=== PATIENT | female | born 1940 | race Caucasian/White ===

== ENCOUNTER → 2017-12-05 | Outpatient (CLI) | payer MEDICARE ==
[~2017-12-05] MED LIST: ASPI-1026 PO; ATOR20TA65 PO; CALC-866 PO; CYAN50003 PO; DABI150C PO; DIAZ5TAB4 PO; DILT180C51 PO; DULO40CA2 PO; FURO20TA4 PO; LEVO500T2 PO; METF-526 PO; METO-409 PO; MIRA50TA PO; NITR0.4T SL; POTA20TA12 PO; SULF1TAB42 PO; TRAM1TAB PO
== END | disposition home or self-care (01) ==
LOC: SHCH 14:06
PROVIDERS: ATTEND Internal Medicine Cardiovascular Disease
DX: I11.0 Hypertensive heart disease with heart failure (principal); I50.22 Chronic systolic (congestive) heart failure; E11.9 Type 2 diabetes mellitus without complications
CPT/HCPCS: 93306

== ENCOUNTER → 2018-02-16 | Outpatient (CLI) | payer MEDICARE | END | disposition home or self-care (01) | LOC: RAH 15:10 | PROVIDERS: ATTEND Internal Medicine | DX: Z01.818 Encounter for other preprocedural examination (principal); S42.301A Unspecified fracture of shaft of humerus, right arm, initial encounter for closed fracture; I50.9 Heart failure, unspecified; X58.XXXA Exposure to other specified factors, initial encounter; Y93.89 Activity, other specified; Y92.89 Other specified places as the place of occurrence of the external cause; Y99.8 Other external cause status | CPT/HCPCS: 71046 ==

== ENCOUNTER 2018-05-04 09:10 | Emergency (ER) | payer MEDICARE ==
[2018-05-04] MEDS ORDERED: TRAMADOL HCL 50 MG TABLET ONE (10:07)
[2018-05-04 10:11] LABS: EOSINOPHILS % (AUTO) 1.9 % (0.0-8.0); HEMATOCRIT 39.8 % (36-48); LYMPHOCYTES % (AUTO) 19.9 % (21.0-51.0); MEAN CORPUSCULAR HEMOGLOBIN 35.3 pg (27.0-33.0); MEAN CORPUSCULAR HGB CONC 32.9 g/dL (32.0-36.0); MEAN CORPUSCULAR VOLUME 107.3 fL (79-99); MONOCYTES % (AUTO) 7.3 % (3.0-13.0); NEUTROPHILS % (AUTO) 69.9 % (40.0-77.0); PLATELET COUNT (AUTO) 243 K/uL (130-400); RED BLOOD CELL COUNT(AUTO) 3.71 MIL/uL (4.00-5.50); RED CELL DISTRIBUTION WIDTH 14.3 % (11.0-15.5); WHITE BLOOD COUNT (AUTO) 7.9 K/uL (4.8-10.8)
[2018-05-04 10:22] LABS: INR 1.25 (0.85-1.15); PARTIAL THROMBOPLASTIN TIME 41.2 SEC (26.3-35.5); POTASSIUM 4.1 mmol/L (3.5-5.1); PROTHROMBIN TIME 13.1 SEC (9.6-11.6)
[2018-05-04 10:27] LABS: ALBUMIN 3.6 g/dL (3.5-5.0); BILIRUBIN,TOTAL 0.4 mg/dL (0.2-1.0); TOTAL PROTEIN, SERUM 7.4 g/dL (6.0-8.3)
== END 2018-05-04 11:12 | disposition home or self-care (01) ==
LOC: EDH 09:10
DX: S22.32XA Fracture of one rib, left side, initial encounter for closed fracture (principal); S61.412A Laceration without foreign body of left hand, initial encounter; R55 Syncope and collapse; E11.9 Type 2 diabetes mellitus without complications; E78.5 Hyperlipidemia, unspecified; I10 Essential (primary) hypertension; Z95.1 Presence of aortocoronary bypass graft; Z85.3 Personal history of malignant neoplasm of breast; Z95.810 Presence of automatic (implantable) cardiac defibrillator; W18.39XA Other fall on same level, initial encounter; Y93.89 Activity, other specified; Y92.89 Other specified places as the place of occurrence of the external cause; Y99.8 Other external cause status
CPT/HCPCS: 36415; 71101; 73130; 80053; 84484; 85025; 85610; 85730; 93005

== ENCOUNTER → 2018-08-18 | Outpatient (CLI) | payer MEDICARE | END | disposition home or self-care (01) | LOC: SLP 20:31 | PROVIDERS: ATTEND Internal Medicine | DX: G47.33 Obstructive sleep apnea (adult) (pediatric) (principal) | CPT/HCPCS: 95810 ==

== ENCOUNTER → 2018-10-08 | Outpatient (CLI) | payer MEDICARE | END | disposition home or self-care (01) | LOC: RAH 13:25 | PROVIDERS: ATTEND Internal Medicine | DX: R92.2 Inconclusive mammogram (principal); Z85.3 Personal history of malignant neoplasm of breast | CPT/HCPCS: 77066 ==

== ENCOUNTER → 2018-10-13 | Outpatient (CLI) | payer MEDICARE | END | disposition home or self-care (01) | LOC: RAH 15:53 | PROVIDERS: ATTEND Internal Medicine | DX: M16.11 Unilateral primary osteoarthritis, right hip (principal); W19.XXXA Unspecified fall, initial encounter; Y93.89 Activity, other specified; Y92.89 Other specified places as the place of occurrence of the external cause; Y99.8 Other external cause status | CPT/HCPCS: 73502 ==

== ENCOUNTER → 2019-10-26 | Outpatient (CLI) | payer MEDICARE | END | disposition home or self-care (01) | LOC: RAH 10:42 | PROVIDERS: ATTEND Internal Medicine | DX: R92.1 Mammographic calcification found on diagnostic imaging of breast (principal); Z85.3 Personal history of malignant neoplasm of breast | CPT/HCPCS: 77066 ==

== ENCOUNTER → 2019-12-16 | Outpatient (CLI) | payer MEDICARE | END | disposition home or self-care (01) | LOC: RAH 09:28 | PROVIDERS: ATTEND Internal Medicine | DX: M47.816 Spondylosis without myelopathy or radiculopathy, lumbar region (principal); M48.061 Spinal stenosis, lumbar region without neurogenic claudication; M54.5 Low back pain; G95.89 Other specified diseases of spinal cord; M89.38 Hypertrophy of bone, other site | CPT/HCPCS: 72100; 72170 ==

== ENCOUNTER → 2020-01-11 | Outpatient (CLI) | payer MEDICARE | END | disposition home or self-care (01) | LOC: RAH 13:24 | PROVIDERS: ATTEND Internal Medicine | DX: M25.551 Pain in right hip (principal); W19.XXXS Unspecified fall, sequela | CPT/HCPCS: 73502 ==

== ENCOUNTER → 2020-02-23 | Outpatient (CLI) | payer MEDICARE ==
[~2020-02-23] MED LIST changes: +ALBUTEROL SULFATE 0.083% 2.5 MG/3 ML INH IH ONE
== END | disposition home or self-care (01) ==
LOC: RESP 12:45
PROVIDERS: ATTEND Internal Medicine Cardiovascular Disease
DX: G47.33 Obstructive sleep apnea (adult) (pediatric) (principal); R06.02 Shortness of breath; I48.0 Paroxysmal atrial fibrillation; I50.22 Chronic systolic (congestive) heart failure
CPT/HCPCS: 94060; 94727; 94729

== ENCOUNTER → 2020-04-05 | Outpatient (CLI) | payer MEDICARE ==
[~2020-04-05] MED LIST changes: -ALBUTEROL SULFATE 0.083% 2.5 MG/3 ML INH IH ONE
== END | disposition home or self-care (01) ==
LOC: RAH 13:27
PROVIDERS: ATTEND Internal Medicine Cardiovascular Disease
DX: J84.10 Pulmonary fibrosis, unspecified (principal); I51.7 Cardiomegaly
CPT/HCPCS: 71250

== ENCOUNTER 2020-05-23 09:57 | Inpatient (IN) | payer MEDICARE ==
[2020-05-19 09:25] VITALS: BP 114/62
[2020-05-19 10:40] LABS: EOSINOPHILS % (AUTO) 2.6 % (0.0-8.0); HEMATOCRIT 39.7 % (36-48); LYMPHOCYTES % (AUTO) 20.7 % (21.0-51.0); MEAN CORPUSCULAR HEMOGLOBIN 37.2 pg (27.0-33.0); MEAN CORPUSCULAR HGB CONC 33.2 g/dL (32.0-36.0); MEAN CORPUSCULAR VOLUME 111.8 fL (79-99); MONOCYTES % (AUTO) 7.6 % (3.0-13.0); NEUTROPHILS % (AUTO) 67.8 % (40.0-77.0); PLATELET COUNT (AUTO) 239 K/uL (130-400); RED BLOOD CELL COUNT(AUTO) 3.55 MIL/uL (4.00-5.50); RED CELL DISTRIBUTION WIDTH 13.8 % (11.0-15.5); WHITE BLOOD COUNT (AUTO) 7.3 K/uL (4.8-10.8)
[2020-05-19 10:53] LABS: APPEARANCE,URINE Cloudy (CLEAR); BILIRUBIN,URINE Negative (NEGATIVE); COLOR,URINE Yellow (YELLOW); GLUCOSE, URINE (UA) Negative (NEGATIVE); KETONES,URINE Negative (NEGATIVE); LEUKOCYTE ESTERASE ,URINE Small (NEGATIVE); NITRATE,URINE Positive (NEGATIVE); OCCULT BLOOD,URINE Negative (NEGATIVE); PH,URINE 5.5 (5.0-8.0); PROTEIN,URINE Negative (NEGATIVE); UROBILINOGEN,URINE 0.2 mg/dL (0.2-1.0)
[2020-05-19 11:01] LABS: INR 1.33 (0.85-1.15); PROTHROMBIN TIME 14.1 SEC (9.6-11.6)
[2020-05-19 11:03] LABS: CREATININE 1.2 mg/dL (0.5-1.5); PARTIAL THROMBOPLASTIN TIME 43.2 SEC (26.3-35.5)
[2020-05-19 11:07] LABS: BACTERIA,URINE Many /HPF (None Seen)
[2020-05-19 11:08] LABS: RBC,URINE None Seen /HPF (0-1)
[2020-05-23] VITALS (14 sets, daily range): BP systolic 136–167; BP diastolic 48–90
[~2020-05-23] VITALS: Ht 154.9 cm; Wt 67.9 kg
[~2020-05-23 09:57] MED LIST changes: +AMIO400T4 PO; -ASPI-1026 PO; -CALC-866 PO; -DIAZ5TAB4 PO; +GABA-529 PO; +GLUC-193 PO; -LEVO500T2 PO; +LISI2.5T2 PO; -METF-526 PO; -MIRA50TA PO; -NITR0.4T SL; +PYRI100L2 PO; +SODIUM CHLORIDE 0.9% 500ML 500 ML IV SCH; -SULF1TAB42 PO; -TRAM1TAB PO
[2020-05-23] MEDS ORDERED: SODIUM CHLORIDE 0.9% 1000ML 1,000 ML IV ONE (10:19)
[2020-05-23] MEDS ORDERED: SODIUM BICARB 50MEQ 50ML VIAL 50 ML ONE (12:18)
[2020-05-23] MEDS ORDERED: BIVALIRUDIN 250 MG/VIAL IV ONE (12:18)
[2020-05-23] MEDS ORDERED: HEPARIN SODIUM 1000UNIT/ML 10ML VIAL ONE (12:18)
[2020-05-23] MEDS ORDERED: FENTANYL CITRATE PF 50 MCG/1 ML 2ML VIAL ONE (12:19)
[2020-05-23] MEDS ORDERED: NITROGLYCERIN 2 MG/VIAL VIAL IV ONE (12:19)
[2020-05-23] MEDS ORDERED: MIDAZOLAM HCL 1 MG/ML 2ML VIAL ONE (12:19)
[2020-05-23] MEDS ORDERED: LIDOCAINE HCL 2% 20ML ONE (12:20)
[2020-05-23] MEDS ORDERED: IOHEXOL 350 MG/ML 100ML INFUS..BTL IV ONE (12:21)
[2020-05-23] MEDS ORDERED: ENALAPRILAT DIHYDRATE 1.25 MG/ML 2ML VIAL IVP ONE (13:28)
[2020-05-23] MEDS ORDERED: FUROSEMIDE 10 MG/ML 2ML VIAL ONE (14:28)
[2020-05-23] MEDS ORDERED: GABAPENTIN 100 MG CAPSULE PO PRN (15:45)
[2020-05-23] MEDS ORDERED: POTASSIUM CHLORIDE 20 MEQ ERTAB PO SCH (15:56)
[2020-05-23] MEDS: PYRIDOXINE HCL 50 MG TABLET PO SCH (16:04)
[2020-05-23] MEDS: CYANOCOBALAMIN (VITAMIN B-12) 1,000 MCG TABLET PO SCH (17:30)
[2020-05-23] MEDS: CEFTRIAXONE SODIUM 1 GM IVP SCH (17:31)
[2020-05-23] MEDS: DILTIAZEM HCL 180 MG CAP.SR.24H PO SCH (17:31)
[2020-05-23 18:35] LABS: BASOPHILS % (AUTO) 0.6 % (0.0-5.0); HEMATOCRIT 43.5 % (36-48); LYMPHOCYTES % (AUTO) 18.5 % (21.0-51.0); MEAN CORPUSCULAR HEMOGLOBIN 37.1 pg (27.0-33.0); MEAN CORPUSCULAR HGB CONC 34.5 g/dL (32.0-36.0); MEAN CORPUSCULAR VOLUME 107.7 fL (79-99); MONOCYTES % (AUTO) 9.3 % (3.0-13.0); NEUTROPHILS % (AUTO) 69.2 % (40.0-77.0); PLATELET COUNT (AUTO) 256 K/uL (130-400); RED BLOOD CELL COUNT(AUTO) 4.04 MIL/uL (4.00-5.50); RED CELL DISTRIBUTION WIDTH 13.4 % (11.0-15.5); WHITE BLOOD COUNT (AUTO) 8.1 K/uL (4.8-10.8)
[2020-05-23 18:46] LABS: CREATININE 1.2 mg/dL (0.5-1.5)
[2020-05-23 18:50] LABS: BILIRUBIN,TOTAL 0.6 mg/dL (0.2-1.0); MAGNESIUM 3.8 mg/dL (1.80-2.40); TOTAL PROTEIN, SERUM 7.9 g/dL (6.0-8.3)
[2020-05-23] MEDS: FAMOTIDINE 20MG TAB 20 MG TAB PO SCH (20:10)
[2020-05-23] MEDS: GLUCOSAMINE-CHONDROITIN PO SCH (20:10)
[2020-05-23] MEDS: DULOXETINE HCL 30 MG CAP PO SCH (20:10)
[2020-05-23] MEDS: FUROSEMIDE 10 MG/ML 2ML VIAL IV SCH (20:11)
[2020-05-23] MEDS: ATORVASTATIN CALCIUM 20 MG TABLET PO SCH (20:11)
[2020-05-24] VITALS (8 sets, daily range): BP systolic 107–149; BP diastolic 57–80
[2020-05-24 04:30] LABS: HEMATOCRIT 43.5 % (36-48); MEAN CORPUSCULAR HEMOGLOBIN 36.7 pg (27.0-33.0); MEAN CORPUSCULAR HGB CONC 33.8 g/dL (32.0-36.0); MEAN CORPUSCULAR VOLUME 108.5 fL (79-99); RED BLOOD CELL COUNT(AUTO) 4.01 MIL/uL (4.00-5.50); RED CELL DISTRIBUTION WIDTH 13.5 % (11.0-15.5); WHITE BLOOD COUNT (AUTO) 8.3 K/uL (4.8-10.8)
[2020-05-24 04:50] LABS: CREATININE 1.2 mg/dL (0.5-1.5); POTASSIUM 3.8 mmol/L (3.5-5.1)
[2020-05-24] MEDS: DILTIAZEM HCL 180 MG CAP.SR.24H PO SCH (08:49)
[2020-05-24] MEDS: DULOXETINE HCL 30 MG CAP PO SCH ×2 (08:49→21:21)
[2020-05-24] MEDS: CYANOCOBALAMIN (VITAMIN B-12) 1,000 MCG TABLET PO SCH (08:50)
[2020-05-24] MEDS: AMIODARONE HCL 200 MG TABLET PO SCH (08:50)
[2020-05-24] MEDS: POTASSIUM CHLORIDE 20 MEQ ERTAB PO SCH (08:55)
[2020-05-24] MEDS: FUROSEMIDE 10 MG/ML 2ML VIAL IV SCH (10:44)
[2020-05-24] MEDS: LISINOPRIL 2.5 MG TABLET PO SCH (11:04)
[2020-05-24] MEDS: METOPROLOL SUCCINATE 50 MG TAB.SR.24H PO SCH (11:04)
[2020-05-24] MEDS: GLUCOSAMINE-CHONDROITIN PO SCH (12:17)
[2020-05-24] MEDS: PYRIDOXINE HCL 50 MG TABLET PO SCH (12:36)
[2020-05-24] MEDS: CEFTRIAXONE SODIUM 1 GM IVP SCH (18:37)
[2020-05-24] MEDS: FUROSEMIDE 10 MG/ML 4ML VIAL IV SCH ×2 (21:00→21:22)
[2020-05-24] MEDS: ATORVASTATIN CALCIUM 20 MG TABLET PO SCH (21:21)
[2020-05-24] MEDS: FAMOTIDINE 20MG TAB 20 MG TAB PO SCH (21:21)
[2020-05-25 03:30] VITALS: BP 112/64
[2020-05-25 05:43] LABS: BASOPHILS % (AUTO) 1.1 % (0.0-5.0); LYMPHOCYTES % (AUTO) 18.6 % (21.0-51.0); MEAN CORPUSCULAR HEMOGLOBIN 37.6 pg (27.0-33.0); MEAN CORPUSCULAR HGB CONC 35.3 g/dL (32.0-36.0); MEAN CORPUSCULAR VOLUME 106.4 fL (79-99); MONOCYTES % (AUTO) 13.7 % (3.0-13.0); NEUTROPHILS % (AUTO) 64.4 % (40.0-77.0); PLATELET COUNT (AUTO) 271 K/uL (130-400); RED BLOOD CELL COUNT(AUTO) 4.23 MIL/uL (4.00-5.50); RED CELL DISTRIBUTION WIDTH 13.2 % (11.0-15.5); WHITE BLOOD COUNT (AUTO) 9.5 K/uL (4.8-10.8)
[2020-05-25 05:44] LABS: CREATININE 1.4 mg/dL (0.5-1.5); POTASSIUM 4.1 mmol/L (3.5-5.1)
[2020-05-25 05:59] LABS: B-TYPE NATRIURETIC PEPTIDE 378 pg/mL (0-100)
[2020-05-25 08:00] VITALS: BP 109/61
[2020-05-25] MEDS: PYRIDOXINE HCL 50 MG TABLET PO SCH (09:45)
[2020-05-25] MEDS: POTASSIUM CHLORIDE 20 MEQ ERTAB PO SCH (09:45)
[2020-05-25] MEDS: DILTIAZEM HCL 180 MG CAP.SR.24H PO SCH (09:45)
[2020-05-25] MEDS: FUROSEMIDE 10 MG/ML 4ML VIAL IV SCH ×3 (09:46→20:49)
[2020-05-25] MEDS: METOPROLOL SUCCINATE 50 MG TAB.SR.24H PO SCH (09:46)
[2020-05-25] MEDS: AMIODARONE HCL 200 MG TABLET PO SCH (09:46)
[2020-05-25] MEDS: LISINOPRIL 2.5 MG TABLET PO SCH (09:46)
[2020-05-25] MEDS: GLUCOSAMINE-CHONDROITIN PO SCH (09:46)
[2020-05-25] MEDS: CYANOCOBALAMIN (VITAMIN B-12) 1,000 MCG TABLET PO SCH (09:46)
[2020-05-25] MEDS: DULOXETINE HCL 30 MG CAP PO SCH ×2 (09:46→20:48)
[2020-05-25 12:00] VITALS: BP 134/77
[2020-05-25 16:00] VITALS: BP 138/79
[2020-05-25] MEDS: CEFTRIAXONE SODIUM 1 GM IVP SCH (16:55)
[2020-05-25 19:35] VITALS: BP 119/64
[2020-05-25] MEDS: ATORVASTATIN CALCIUM 20 MG TABLET PO SCH (20:48)
[2020-05-25] MEDS: FAMOTIDINE 20MG TAB 20 MG TAB PO SCH (20:48)
[2020-05-25 23:56] VITALS: BP 128/69
[2020-05-26 04:00] VITALS: BP 109/67
[2020-05-26 05:23] LABS: CREATININE 1.1 mg/dL (0.5-1.5); EOSINOPHILS % (AUTO) 2.2 % (0.0-8.0); MEAN CORPUSCULAR HEMOGLOBIN 36.4 pg (27.0-33.0); MEAN CORPUSCULAR HGB CONC 33.9 g/dL (32.0-36.0); MEAN CORPUSCULAR VOLUME 107.6 fL (79-99); MONOCYTES % (AUTO) 11.4 % (3.0-13.0); NEUTROPHILS % (AUTO) 62.1 % (40.0-77.0); PLATELET COUNT (AUTO) 253 K/uL (130-400); POTASSIUM 3.7 mmol/L (3.5-5.1); RED BLOOD CELL COUNT(AUTO) 4.09 MIL/uL (4.00-5.50); RED CELL DISTRIBUTION WIDTH 13.1 % (11.0-15.5); WHITE BLOOD COUNT (AUTO) 10.6 K/uL (4.8-10.8)
[2020-05-26 07:03] LABS: INR 1.08 (0.85-1.15); PROTHROMBIN TIME 11.7 SEC (9.6-11.6)
[2020-05-26 07:04] LABS: PARTIAL THROMBOPLASTIN TIME 24.7 SEC (26.3-35.5)
[2020-05-26 07:10] LABS: CREATINE KINASE, TOTAL 77 U/L (21-232); MYOGLOBIN 68 ng/mL (10-92); TROPONIN I < 0.04 ng/mL (0.00-0.06)
[2020-05-26] MEDS ORDERED: LIDOCAINE HCL 2% 20ML ONE (07:59)
[2020-05-26] MEDS ORDERED: SODIUM BICARB 50MEQ 50ML VIAL 50 ML ONE (07:59)
[2020-05-26 08:00] VITALS: BP 112/71
[2020-05-26] MEDS ORDERED: METO200T49 PO (09:45)
[2020-05-26] MEDS: DULOXETINE HCL 30 MG CAP PO SCH (14:00)
[2020-05-26] MEDS: LISINOPRIL 2.5 MG TABLET PO SCH (14:00)
[2020-05-26] MEDS: CYANOCOBALAMIN (VITAMIN B-12) 1,000 MCG TABLET PO SCH (14:00)
[2020-05-26] MEDS: GLUCOSAMINE-CHONDROITIN PO SCH (14:00)
[2020-05-26] MEDS: DILTIAZEM HCL 180 MG CAP.SR.24H PO SCH (14:00)
[2020-05-26] MEDS: POTASSIUM CHLORIDE 20 MEQ ERTAB PO SCH (14:00)
[2020-05-26] MEDS: PYRIDOXINE HCL 50 MG TABLET PO SCH (14:00)
[2020-05-26] MEDS: AMIODARONE HCL 200 MG TABLET PO SCH (14:00)
[2020-05-27] MEDS ORDERED: METOPROLOL SUCCINATE 50 MG TAB.SR.24H PO SCH (09:00)
== END 2020-05-26 15:16 | disposition home or self-care (01) | DRG 286 ==
LOC: DAH 09:57 → DAHIP 09:58 → DAH 09:58 → 4DH 16:11
PROVIDERS: ADMIT Internal Medicine; ATTEND Internal Medicine
PROC: 4A023N8 Measurement of Cardiac Sampling and Pressure, Bilateral, Percutaneous Approach (ICD-10-PCS; principal; 2020-05-23)
PROC: B2111ZZ Fluoroscopy of Multiple Coronary Arteries using Low Osmolar Contrast (ICD-10-PCS; 2020-05-23)
PROC: B2181ZZ Fluoroscopy of Left Internal Mammary Bypass Graft using Low Osmolar Contrast (ICD-10-PCS; 2020-05-23)
PROC: B2151ZZ Fluoroscopy of Left Heart using Low Osmolar Contrast (ICD-10-PCS; 2020-05-23)
PROC: B2131ZZ Fluoroscopy of Multiple Coronary Artery Bypass Grafts using Low Osmolar Contrast (ICD-10-PCS; 2020-05-23)
PROC: 4A023N6 Measurement of Cardiac Sampling and Pressure, Right Heart, Percutaneous Approach (ICD-10-PCS; 2020-05-26)
DX: I13.0 Hypertensive heart and chronic kidney disease with heart failure and stage 1 through stage 4 chronic kidney disease, or unspecified chronic kidney disease (principal); I50.43 Acute on chronic combined systolic (congestive) and diastolic (congestive) heart failure; N39.0 Urinary tract infection, site not specified; I27.20 Pulmonary hypertension, unspecified; I34.0 Nonrheumatic mitral (valve) insufficiency; I25.10 Atherosclerotic heart disease of native coronary artery without angina pectoris; N18.30 Chronic kidney disease, stage 3 unspecified; F32.9 Major depressive disorder, single episode, unspecified; G47.33 Obstructive sleep apnea (adult) (pediatric); I48.0 Paroxysmal atrial fibrillation; Z80.52 Family history of malignant neoplasm of bladder; Z82.3 Family history of stroke; Z82.49 Family history of ischemic heart disease and other diseases of the circulatory system; Z85.3 Personal history of malignant neoplasm of breast; Z95.810 Presence of automatic (implantable) cardiac defibrillator; Z95.1 Presence of aortocoronary bypass graft
CPT/HCPCS: 36415; 71045; 80048; 80053; 81001; 82550; 82948; 83735; 83874; 83880; 84145; 84484; 85025; 85027; 85610; 85730; 87077; 87088; 87186; 93005; 93306; 93356; 93451; 93461; A4606; C1760; C1769; C1894; G0378; J0583; J0696; J1644; J1940; J2250; J3010; J3490; J7030; Q9967

== ENCOUNTER 2021-06-18 09:09 | Emergency (ER) | payer MEDICARE ==
[~2021-06-18 09:09] MED LIST changes: -DILT180C51 PO; +LISI2.5T13 PO; -LISI2.5T2 PO; -METO-409 PO; +METO200T49 PO; +POTA-192 PO; -POTA20TA12 PO; -SODIUM CHLORIDE 0.9% 500ML 500 ML IV SCH
[2021-06-18] MEDS ORDERED: GABA-529 PO (09:34)
[2021-06-18] MEDS ORDERED: TORS100T16 PO (09:34)
[2021-06-18] MEDS ORDERED: OMEP20CA12 PO (09:34)
[2021-06-18] MEDS ORDERED: AMIO200T68 PO (09:34)
[2021-06-18] MEDS ORDERED: SPIR25TA6 PO (09:34)
[2021-06-18 09:46] LABS: BASOPHILS % (AUTO) 0.6 % (0.0-5.0); HEMATOCRIT 38.4 % (36-48); LYMPHOCYTES % (AUTO) 13.1 % (21.0-51.0); MEAN CORPUSCULAR HEMOGLOBIN 36.2 pg (27.0-33.0); MEAN CORPUSCULAR HGB CONC 34.1 g/dL (32.0-36.0); MEAN CORPUSCULAR VOLUME 106.1 fL (79-99); MONOCYTES % (AUTO) 7.5 % (3.0-13.0); NEUTROPHILS % (AUTO) 77.2 % (40.0-77.0); PLATELET COUNT (AUTO) 219 K/uL (130-400); RED BLOOD CELL COUNT(AUTO) 3.62 MIL/uL (4.00-5.50); RED CELL DISTRIBUTION WIDTH 13.7 % (11.0-15.5); WHITE BLOOD COUNT (AUTO) 12.5 K/uL (4.8-10.8)
[2021-06-18] MEDS ORDERED: ONDANSETRON 4MG INJ ONE (09:53)
[2021-06-18 09:54] LABS: ALBUMIN 3.5 g/dL (3.5-5.0); BILIRUBIN,TOTAL 0.6 mg/dL (0.2-1.0); CREATININE 1.5 mg/dL (0.5-1.5); POTASSIUM 3.4 mmol/L (3.5-5.1); TOTAL PROTEIN, SERUM 7.7 g/dL (6.0-8.3)
[2021-06-18] MEDS ORDERED: MORPHINE 2 MG SYG ONE (09:54)
[2021-06-18] MEDS ORDERED: ONDANSETRON 4MG INJ IVP ONE (10:00)
[2021-06-18] MEDS ORDERED: MORPHINE 2 MG SYG IVP ONE (10:00)
[2021-06-18 12:13] VITALS: BP 134/65
== END 2021-06-18 15:42 | disposition home or self-care (01) ==
LOC: EDH 09:09
DX: S70.01XA Contusion of right hip, initial encounter (principal); S50.01XA Contusion of right elbow, initial encounter; S00.03XA Contusion of scalp, initial encounter; I10 Essential (primary) hypertension; Z79.01 Long term (current) use of anticoagulants; Z79.899 Other long term (current) drug therapy; Z95.810 Presence of automatic (implantable) cardiac defibrillator; W22.03XA Walked into furniture, initial encounter; Y93.89 Activity, other specified; Y92.89 Other specified places as the place of occurrence of the external cause; Y99.8 Other external cause status
CPT/HCPCS: 36415; 70450; 72125; 73080; 73502; 73700; 80053; 84484; 85025; 93005; 96374; 96375; 99285; J2405

== ENCOUNTER 2021-06-29 15:52 | Emergency (ER) | payer MEDICARE ==
[~2021-06-29] VITALS: Ht 152.4 cm; Wt 63.5 kg
[~2021-06-29 15:52] MED LIST changes: +AMIO200T68 PO; -AMIO400T4 PO; -CYAN50003 PO; -FURO20TA4 PO; -GLUC-193 PO; -LISI2.5T13 PO; +OMEP20CA12 PO; -PYRI100L2 PO; +SPIR25TA6 PO; +TORS100T16 PO
[2021-06-29] MEDS ORDERED: NAPR-1196 PO (19:31)
[2021-06-29 19:41] VITALS: BP 123/58
== END 2021-06-29 19:49 | disposition home or self-care (01) ==
LOC: EDH 15:52
DX: S70.01XA Contusion of right hip, initial encounter (principal); I25.10 Atherosclerotic heart disease of native coronary artery without angina pectoris; E11.9 Type 2 diabetes mellitus without complications; E78.00 Pure hypercholesterolemia, unspecified; I10 Essential (primary) hypertension; Z79.899 Other long term (current) drug therapy; Z90.89 Acquired absence of other organs; Z98.890 Other specified postprocedural states; X58.XXXA Exposure to other specified factors, initial encounter; Y93.89 Activity, other specified; Y92.89 Other specified places as the place of occurrence of the external cause; Y99.8 Other external cause status
CPT/HCPCS: 72192; 73551

== ENCOUNTER → 2022-03-13 | Outpatient (CLI) | payer MEDICARE ==
[~2022-03-13] MED LIST changes: +NAPR-1196 PO
== END | disposition home or self-care (01) ==
LOC: RAH 08:58
PROVIDERS: ATTEND Internal Medicine
DX: Z12.31 Encounter for screening mammogram for malignant neoplasm of breast (principal); Z85.3 Personal history of malignant neoplasm of breast
CPT/HCPCS: 77066

== ENCOUNTER 2022-06-18 18:16 | Emergency (ER) | payer MEDICARE ==
[~2022-06-18] VITALS: Ht 154.9 cm; Wt 68.9 kg
[2022-06-18] MEDS ORDERED: 0.9%NACL 1000ML 1,000 ML IV ONE (19:55)
[2022-06-18 20:22] LABS: BASOPHILS % (AUTO) 1.1 % (0.0-5.0); EOSINOPHILS % (AUTO) 1.7 % (0.0-8.0); LYMPHOCYTES % (AUTO) 19.1 % (21.0-51.0); MEAN CORPUSCULAR HEMOGLOBIN 37.2 pg (27.0-33.0); MEAN CORPUSCULAR HGB CONC 36.3 g/dL (32.0-36.0); MEAN CORPUSCULAR VOLUME 102.2 fL (79-99); MONOCYTES % (AUTO) 10.3 % (3.0-13.0); NEUTROPHILS % (AUTO) 67.4 % (40.0-77.0); PLATELET COUNT (AUTO) 315 K/uL (130-400); RED BLOOD CELL COUNT(AUTO) 4.01 MIL/uL (4.00-5.50); RED CELL DISTRIBUTION WIDTH 11.7 % (11.0-15.5)
[2022-06-18 20:25] LABS: APPEARANCE,URINE CLOUDY (CLEAR); BILIRUBIN,URINE NEGATIVE (NEGATIVE); COLOR,URINE COLORLESS (YELLOW); GLUCOSE, URINE (UA) 500 mg/dL (NEGATIVE); KETONES,URINE NEGATIVE (NEGATIVE); LEUKOCYTE ESTERASE ,URINE 500 Leu/uL (NEGATIVE); NITRATE,URINE NEGATIVE (NEGATIVE); PROTEIN,URINE 10 mg/dL (NEGATIVE); UROBILINOGEN,URINE 0.2 mg/dL (0.2-1.0)
[2022-06-18 20:32] LABS: BACTERIA,URINE MOD /HPF (None Seen); MUCUS,URINE RARE LPF (None Seen); RBC,URINE 0-1 /HPF (0-1); SQUAMOUS EPITHELIAL CELL,UR MOD /HPF (0-2); WBC,URINE TNTC /HPF (0-1)
[2022-06-18 20:41] LABS: CREATININE 2.2 mg/dL (0.5-1.5); MAGNESIUM 2.8 mg/dL (1.80-2.40); TOTAL PROTEIN, SERUM 8.3 g/dL (6.0-8.3)
[2022-06-18 20:43] LABS: POTASSIUM 2.4 mmol/L (3.5-5.1)
[2022-06-18 20:56] LABS: B-TYPE NATRIURETIC PEPTIDE 357 pg/mL (0-100)
[2022-06-18] MEDS ORDERED: 0.9%NACL 1000ML 1,000 ML IV SCH (21:00)
[2022-06-18] MEDS ORDERED: POTASSIUM BICARB/CIT AC 25 MEQ TABLET.EFF PO ONE (21:00)
[2022-06-18] MEDS ORDERED: CEFTRIAXONE 1G VIAL IVP ONE (21:30)
[2022-06-19] MEDS ORDERED: 0.9% NACL 500ML IV.SOLN 500 ML IV ONE (03:02)
[2022-06-19 03:04] LABS: ALBUMIN 3.5 g/dL (3.5-5.0); CREATININE 1.9 mg/dL (0.5-1.5); TOTAL PROTEIN, SERUM 7.4 g/dL (6.0-8.3)
[2022-06-19 03:06] LABS: POTASSIUM 2.3 mmol/L (3.5-5.1)
[2022-06-19] MEDS ORDERED: 0.9% NACL 500ML IV.SOLN 500 ML IV STA (03:10)
[2022-06-19] MEDS ORDERED: POTASSIUM BICARB/CIT AC 25 MEQ TABLET.EFF ONE (03:12)
[2022-06-19 05:27] LABS: CREATININE 1.7 mg/dL (0.5-1.5)
[2022-06-19 05:32] LABS: ALBUMIN 3.6 g/dL (3.5-5.0); TOTAL PROTEIN, SERUM 7.6 g/dL (6.0-8.3)
[2022-06-19] MEDS ORDERED: CEPH500B PO (05:46)
[2022-06-19 06:00] VITALS: BP 132/75
[2022-06-19] MEDS ORDERED: POTASSIUM BICARB/CIT AC 25 MEQ TABLET.EFF PO ONE ×2 (06:00→09:00)
== END 2022-06-19 06:07 | disposition home or self-care (01) ==
LOC: EDH 18:16
DX: E87.6 Hypokalemia (principal); E86.0 Dehydration; N13.9 Obstructive and reflux uropathy, unspecified; I50.9 Heart failure, unspecified; N28.9 Disorder of kidney and ureter, unspecified; E11.9 Type 2 diabetes mellitus without complications; E78.00 Pure hypercholesterolemia, unspecified; Z79.01 Long term (current) use of anticoagulants; Z79.1 Long term (current) use of non-steroidal anti-inflammatories (NSAID); Z79.899 Other long term (current) drug therapy; Z95.810 Presence of automatic (implantable) cardiac defibrillator
CPT/HCPCS: 99285; 71045; 83735; 83880; 85025; 87077; 87088; 87186; 81001; 36415 ×2; 93005; 96361; 96374; 80053 ×3; J7030 ×2; J0696; J7040

== ENCOUNTER 2022-06-26 07:11 | Emergency (ER) | payer MEDICARE ==
[~2022-06-26] VITALS: Ht 154.9 cm; Wt 68.0 kg
[~2022-06-26 07:11] MED LIST changes: +CEPH500B PO
[2022-06-26 07:45] LABS: HEMATOCRIT 40.1 % (36-48); MEAN CORPUSCULAR HEMOGLOBIN 37.4 pg (27.0-33.0); MEAN CORPUSCULAR HGB CONC 34.2 g/dL (32.0-36.0); MEAN CORPUSCULAR VOLUME 109.6 fL (79-99); PLATELET COUNT (AUTO) 263 K/uL (130-400); RED BLOOD CELL COUNT(AUTO) 3.66 MIL/uL (4.00-5.50); RED CELL DISTRIBUTION WIDTH 12.3 % (11.0-15.5); WHITE BLOOD COUNT (AUTO) 9.2 K/uL (4.8-10.8)
[2022-06-26 07:58] LABS: CREATININE 1.8 mg/dL (0.5-1.5); POTASSIUM 3.1 mmol/L (3.5-5.1)
[2022-06-26 08:06] LABS: ALBUMIN 3.6 g/dL (3.5-5.0); TOTAL PROTEIN, SERUM 7.7 g/dL (6.0-8.3)
[2022-06-26 08:37] VITALS: BP 118/46
[2022-06-26] MEDS ORDERED: KCL 20 MEQ ERTAB PO ONE (10:00)
== END 2022-06-26 10:02 | disposition home or self-care (01) ==
LOC: EDH 07:11
DX: S00.12XA Contusion of left eyelid and periocular area, initial encounter (principal); S00.11XA Contusion of right eyelid and periocular area, initial encounter; E87.6 Hypokalemia; E78.00 Pure hypercholesterolemia, unspecified; E11.9 Type 2 diabetes mellitus without complications; Z79.899 Other long term (current) drug therapy; W18.30XA Fall on same level, unspecified, initial encounter; Y93.89 Activity, other specified; Y92.89 Other specified places as the place of occurrence of the external cause; Y99.8 Other external cause status
CPT/HCPCS: 36415; 70450; 72125; 80053; 84484; 85027; 93005

== ENCOUNTER 2022-12-12 05:49 | Observation (INO) | payer MEDICARE ==
[2022-12-10 08:45] LABS: BASOPHILS # (AUTO) 0.12 K/uL (0.00-0.20); BASOPHILS % (AUTO) 1.3 % (0.0-5.0); EOSINOPHILS % (AUTO) 6.7 % (0.0-8.0); HEMATOCRIT 40.1 % (36-48); IMMATURE GRANULOCYTE ABSOLUTE 0.04 K/uL (0-1); LYMPHOCYTES # (AUTO) 1.4 K/uL (1.0-4.8); LYMPHOCYTES % (AUTO) 15.7 % (21.0-51.0); MEAN CORPUSCULAR HEMOGLOBIN 35.7 pg (27.0-33.0); MEAN CORPUSCULAR HGB CONC 32.7 g/dL (32.0-36.0); MEAN CORPUSCULAR VOLUME 109.3 fL (79-99); MONOCYTES # (AUTO) 0.9 K/uL (0.1-1.0); MONOCYTES % (AUTO) 9.5 % (3.0-13.0); NEUTROPHILS % (AUTO) 66.4 % (40.0-77.0); PLATELET COUNT (AUTO) 301 K/uL (130-400); RED BLOOD CELL COUNT(AUTO) 3.67 MIL/uL (4.00-5.50); RED CELL DISTRIBUTION WIDTH 14.1 % (11.0-15.5)
[2022-12-10 08:49] VITALS: BP 128/69; PULSE 72; RESP 19
[2022-12-10 08:57] LABS: CREATININE 1.1 mg/dL (0.5-1.5); POTASSIUM 4.4 mmol/L (3.5-5.1)
[2022-12-10 08:58] LABS: INR 1.81 (0.85-1.15); PROTHROMBIN TIME 20.2 SEC (9.6-11.6)
[2022-12-10 08:59] LABS: PARTIAL THROMBOPLASTIN TIME 57.2 SEC (26.3-35.5)
[~2022-12-12] VITALS: Ht 152.4 cm; Wt 69.0 kg
[2022-12-12] VITALS (24 sets, daily range): BP systolic 97–124; BP diastolic 44–71; PULSE 60–86; RESP 14–19; O2SAT 97–98
[~2022-12-12 05:49] MED LIST changes: -AMIO200T68 PO; -CEPH500B PO; +DRON400T7 PO; -DULO40CA2 PO; +DULO60CA64 PO; +FURO20TA4 PO; -GABA-529 PO; +LEVO25TA54 PO; +METO-409 PO; -METO200T49 PO; -NAPR-1196 PO; -OMEP20CA12 PO; -SPIR25TA6 PO; -TORS100T16 PO
[2022-12-12] MEDS ORDERED: 0.9%NACL 1000ML 1,000 ML IV ONE (06:29)
[2022-12-12] MEDS ORDERED: LIDOCAINE HCL 400MG/20ML VIAL ONE (07:18)
[2022-12-12] MEDS ORDERED: HEPARIN 10,000 UNIT/10ML (1,000 UNIT/ML) VIAL ONE ×2 (07:18→08:36)
[2022-12-12] MEDS ORDERED: DEXAMETHASONE SOD PHOSPHATE 4 MG/ML 1ML VIAL ONE (07:32)
[2022-12-12] MEDS ORDERED: NOREPINEPHRINE BITARTRATE 1 MG/1 ML ML IV ONE (07:32)
[2022-12-12] MEDS ORDERED: PROPOFOL 10 MG/ML 20ML VIAL IV ONE (07:33)
[2022-12-12] MEDS ORDERED: LIDOCAINE HCL 1% MDV 50ML VIAL ONE (07:33)
[2022-12-12] MEDS ORDERED: ONDANSETRON 4MG INJ ONE (07:33)
[2022-12-12] MEDS ORDERED: VASOPRESSIN 20 UNITS/ML 1ML VIAL ONE (07:34)
[2022-12-12] MEDS ORDERED: ALBUMIN (HUMAN) 5% 250 ML IV ONE (07:34)
[2022-12-12] MEDS ORDERED: ROCURONIUM BROMIDE 10MG/1ML 5ML VL ONE (07:34)
[2022-12-12] MEDS ORDERED: ROCURONIUM 10MG/1ML SYR 10 MG/ML ML ONE (07:42)
[2022-12-12] MEDS ORDERED: PROPOFOL 1000 MG/100 ML 100 ML IV ONE (07:42)
[2022-12-12] MEDS ORDERED: PHENYLEPHRINE HCL 10 MG/ML 1ML VIAL IV ONE (09:57)
[2022-12-12] MEDS ORDERED: FENTANYL CITRATE PF 50 MCG/1 ML 2ML VIAL ONE (09:58)
[2022-12-12] MEDS ORDERED: SUGAMMADEX SODIUM 200 MG/2 ML VIAL IV ONE (09:59)
[2022-12-12] MEDS ORDERED: PROTAMINE SULFATE 10 MG/ML 25ML VIAL IV ONE (11:30)
[2022-12-12] MEDS ORDERED: PANTOPRAZOLE 40 MG TAB DR PO ONE (14:00)
[2022-12-12] MEDS: SUCRALFATE 1 GM TABLET PO SCH ×2 (14:31→20:35)
[2022-12-12] MEDS: DABIGATRAN 150MG CAPSULE PO SCH (20:36)
[2022-12-12] MEDS: FUROSEMIDE 20 MG TABLET PO SCH (20:36)
[2022-12-12] MEDS: KCL 20 MEQ ERTAB PO SCH (20:37)
[2022-12-12] MEDS ORDERED: NON-FORMULARY MEDICATION 1 EACH (Duloxetine HCl 60 MG) PO SCH (21:00)
[2022-12-12] MEDS ORDERED: DULOXETINE HCL 30 MG CAP PO SCH (21:00)
[2022-12-12] MEDS ORDERED: ATORVASTATIN 20 MG TABLET PO SCH (21:00)
[2022-12-13 00:44] VITALS: BP 106/59; PULSE 61; RESP 18
[2022-12-13] MEDS: SUCRALFATE 1 GM TABLET PO SCH ×2 (02:57→07:45)
[2022-12-13 04:44] VITALS: BP 120/60; PULSE 66; RESP 18
[2022-12-13] MEDS ORDERED: LEVOTHYROXINE 25 MCG TABLET PO SCH (06:30)
[2022-12-13 07:12] VITALS: O2SAT 98
[2022-12-13 07:30] VITALS: BP 114/57; PULSE 72; RESP 16
[2022-12-13] MEDS: KCL 20 MEQ ERTAB PO SCH (07:46)
[2022-12-13] MEDS: DABIGATRAN 150MG CAPSULE PO SCH (07:46)
[2022-12-13] MEDS: FUROSEMIDE 20 MG TABLET PO SCH (07:47)
[2022-12-13] MEDS ORDERED: PANTOPRAZOLE 40 MG TAB DR PO SCH (09:00)
[2022-12-13] MEDS ORDERED: METOPROLOL SUCCINATE 50 MG TAB.SR.24H PO SCH (09:00)
[2022-12-13] MEDS ORDERED: NON-FORMULARY MEDICATION 1 EACH (Metoprolol Succinate 100 MG) PO SCH (09:00)
[2022-12-13] MEDS ORDERED: PANT40TA55 PO (09:11)
[2022-12-13] MEDS ORDERED: SUCR1TAB PO (09:11)
== END 2022-12-13 11:51 | disposition home or self-care (01) ==
LOC: DAH 05:49 → DAHIP 05:50 → 2AH 13:30
PROVIDERS: ADMIT Internal Medicine Cardiovascular Disease; ATTEND Internal Medicine Cardiovascular Disease
DX: I48.91 Unspecified atrial fibrillation (principal); Z79.899 Other long term (current) drug therapy
CPT/HCPCS: 80048; 85025; 85610; 85730; 36415; 93005; 93622; 93656; 71045; A4344; C1894 ×3; C1732 ×2; C1731; A4649 ×2; C1766; G0378 ×24; P9045; J3010; J3490 ×5; J7030; J2720; J1644 ×2; J2704 ×2; J2405; J1100; J2371; A4215; A4223 ×3; A4222; A4221; A4663; A4216; A4606